=== PATIENT | female | born 1990 | race Caucasian/White ===

== ENCOUNTER 2021-11-17 21:08 | Emergency (ER) | payer SELFPAY | END 2021-11-17 22:57 | disposition home or self-care (01) | LOC: EDBD 21:08 → JD.ED 21:08 | DX: Z32.01 Encounter for pregnancy test, result positive (principal); F17.210 Nicotine dependence, cigarettes, uncomplicated; Z88.5 Allergy status to narcotic agent | CPT/HCPCS: 36415; 84702; 99282 ==

== ENCOUNTER 2022-05-06 09:34 | Emergency (ER) | payer MEDICAID ==
[2022-05-06] MEDS ORDERED: Aspirin 81 MG Tab.Chew PO ONE (10:04)
[2022-05-06] MEDS ORDERED: hydrOXYzine HCl 25 MG Tab PO ONE (10:07)
== END 2022-05-06 13:07 | disposition home or self-care (01) ==
LOC: JD.ED 09:34
DX: R07.89 Other chest pain (principal); F17.210 Nicotine dependence, cigarettes, uncomplicated; Z88.5 Allergy status to narcotic agent; Z86.16 Personal history of COVID-19
CPT/HCPCS: 36415; 71045; 80053; 81001; 81025; 83690; 83735; 84484; 85025; 85379; 93005; 99285; A9270